=== PATIENT | male | born 1990 | race Caucasian/White ===

== ENCOUNTER 2016-12-18 22:21 | Emergency (ER) | payer OTHER ==
[~2016-12-18 22:21] MED LIST: BACT800T5 PO; CEPH500C3 PO; IBUP800T23 PO; LEXA10TA PO
[2016-12-18 22:23] VITALS: BP 133/66; PULSE 93; RESP 14; TEMP 98; O2SAT 99
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
--- NOTE | 2016-12-18 22:48 | PD ---
HPI Chief Complaint: Wound/Suture/Staple Re-Check Time Seen by Provider: 22:46 Travel History International Travel<30 days: No Contact w/Intl Traveler<30days: No Traveled to known affect area: No History of Present Illness HPI 26-year-old male presents to the emergency department requesting removal of his cast. Patient states it has been in place for 6 weeks. Patient alleges that Dr. Mckeon originally saw him for his wrist injury and placed the cast. He states that the office recently realized that they do not accept his insurance so they told him that they would not see him anymore. They told him they would not remove the cast. Patient denies any new injury. No pain. States that he does not know what to do. He has no other symptoms to report. PFSH Past Medical History Depression: Yes Diabetes: No Diminished Hearing: No Hepatitis: No Immune Disorder: No Psychiatric: Yes (PSA) Integumentary: Yes (SELF INFLICTED LACERATION TO LEFT WRIST, REQUIRING SUTURES) Social History Alcohol Use: Yes (DAILY) Tobacco Use: Yes (1/2 PPD) Substance Use: Yes (REPORTS CRACK AND ALCOHOL) Allergies-Medications (Allergen,Severity, Reaction): Coded Allergies: Aspirin (Verified Allergy, Severe, HEADACHE /ITCHING, 12/18/16) Pt states he does not have this allergy. 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/2015 Reported Meds & Prescriptions Reported Meds & Active Scripts Active Ibuprofen 800 Mg Tab 800 Mg PO Q8HR PRN Keflex (Cephalexin Monohydrate) 500 Mg Cap 500 Mg PO QID 5 Days Bactrim DS (Sulfamethoxazole-Trimethoprim DS) 1 Tab Tab 1 Tab PO BID 10 Days Ibuprofen 800 Mg Tab 800 Mg PO TID PRN 7 Days Keflex (Cephalexin Monohydrate) 500 Mg Cap 500 Mg PO QID 10 Days Bactrim DS (Sulfamethoxazole-Trimethoprim DS) 1 Tab Tab 1 Tab PO BID 10 Days Reported Lexapro (Escitalopram Oxalate) 10 Mg Tab 10 Mg PO DAILY Review of Systems Except as stated in HPI: all other systems reviewed are Neg Physical Exam Narrative GENERAL: Well-nourished, well-developed male patient, ambulatory no acute distress SKIN: Focused skin assessment warm/dry. HEAD: Normocephalic. EYES: No scleral icterus. No injection or drainage. NECK: Supple, trachea midline. No JVD or lymphadenopathy. CARDIOVASCULAR: Regular rate and rhythm without murmurs, gallops, or rubs. RESPIRATORY: Breath sounds equal bilaterally. No accessory muscle use. MUSCULOSKELETAL: No cyanosis, or edema. Cast right upper extremity. Cap refill within normal limits. Sensation intact distal affected digits. BACK: Nontender without obvious deformity. No CVA tenderness. Data Data Last Documented VS Vital Signs Date Time Temp Pulse Resp B/P Pulse Ox O2 Delivery O2 Flow Rate FiO2 12/18/16 22:23 98.0 93 14 133/66 99 Room Air Orders Mandatory Outpatient Referral (12/18/16 22:48) [facility] Medical Decision Making Medical Screen Exam Complete: Yes Emergency Medical Condition: Yes Medical Record Reviewed: Yes Differential Diagnosis Healing fracture versus normal examination versus malunion of fracture versus delayed healing Narrative Course 26-year-old male presents to emergency department requesting that his cast be removed from his right wrist. Explained to the patient that I'm not endocrinology specialist to evaluate or removed. Emergency department. Mandatory referral has been placed for patient to follow-up with endocrinology specialist outpatient. Patient agrees to return immediately if any acute worsening of symptoms. Diagnosis Primary Impression: Wrist fracture, right Qualified Code: S62.101D - Wrist fracture, right, with routine healing, subsequent encounter Referrals: Wyatt Mckeon MD Patient Instructions: General Instructions, Wrist Fracture in Adults (GEN) Additional Instructions: A mandatory referral has been placed If you do not hear from our hospital within a week, please call [phone] and explained to them your situation and tell them that a mandatory referral had been placed Return immediately with any acute worsening of symptoms Med/Other Pt SpecificInfo: No Change to Meds Disposition: 01 DISCHARGE HOME Condition: Stable PippaMarietta NAIK December 18, 2016 22:47
== END 2016-12-18 23:23 | disposition home or self-care (01) ==
LOC: NEPK 22:21
DX: S62.101D Fracture of unspecified carpal bone, right wrist, subsequent encounter for fracture with routine healing (principal); X58.XXXD Exposure to other specified factors, subsequent encounter
CPT/HCPCS: 99283

== ENCOUNTER 2017-01-03 00:42 | Emergency (ER) | payer SELFPAY ==
[~2017-01-03] VITALS: Ht 188 cm; Wt 80.0 kg
[2017-01-03 00:49] VITALS: BP 156/92; PULSE 98; RESP 16; TEMP 98.4; O2SAT 99
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
[2017-01-03 01:10] LABS: AUTOMATED NEUTROPHIL # 5.9 TH/MM3 (1.8-7.7); BASOPHIL # 0.1 TH/MM3 (0-0.2); BASOPHIL % 1.9 % (0.0-2.0); EOSINOPHIL # 0.1 TH/MM3 (0-0.4); EOSINOPHIL % 0.9 % (0.0-4.0); HEMATOCRIT 45.3 % (39.0-51.0); LYMPH % 17.1 % (9.0-44.0); LYMPHOCYTE # 1.4 TH/MM3 (1.0-4.8); MEAN CORPUSCULAR HEMOGLOBIN 31.3 PG (27.0-34.0); MONO % 5.7 % (0.0-8.0); NEUT % 74.4 % (16.0-70.0); PLATELET COUNT 214 TH/MM3 (150-450); RED BLOOD COUNT 5.21 MIL/MM3 (4.50-5.90); RED CELL DISTRIBUTION WIDTH 14.1 % (11.6-17.2)
[2017-01-03 01:11] LABS: HEMO FLAGS AUTO DIFF
[2017-01-03 01:18] LABS: ALT (GPT) 30 U/L (12-78); ANION GAP 15 MEQ/L (5-15); AST (GOT) 24 U/L (15-37); BICARBONATE 24.4 MEQ/L (21.0-32.0); BLOOD UREA NITROGEN 4 MG/DL (7-18); CHLORIDE 103 MEQ/L (98-107); GLOMERULAR FILTRATION RATE 72 ML/MIN (>89); POTASSIUM 3.7 MEQ/L (3.5-5.1); SODIUM (NA) 142 MEQ/L (136-145)
[2017-01-03 01:19] LABS: AMPHETAMINE, URINE NEG (NEG); BARBITURATES, URINE NEG (NEG); COCAINE, URINE POS (NEG)
[2017-01-03 01:20] LABS: ALKALINE PHOSPHATASE 86 U/L (45-117); TOTAL BILIRUBIN ADULT 0.5 MG/DL (0.2-1.0)
[2017-01-03 01:55] LABS: SCAN/DIFF AUTO DIFF CONFIRMED
[2017-01-03 01:56] LABS: PLATELET ESTIMATE SMEAR NORMAL (NORMAL); PLATELET MORPHOLOGY NORMAL (NORMAL)
[2017-01-03 06:16] VITALS: BP 116/66; PULSE 87; RESP 18; O2SAT 97
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
== END 2017-01-03 11:41 | disposition home or self-care (01) ==
LOC: NEPD 00:42 → NEPJ 11:41
DX: F19.10 Other psychoactive substance abuse, uncomplicated (principal); F10.929 Alcohol use, unspecified with intoxication, unspecified; F14.10 Cocaine abuse, uncomplicated; F17.200 Nicotine dependence, unspecified, uncomplicated; Z86.59 Personal history of other mental and behavioral disorders
CPT/HCPCS: 80053; 80307; 85025; 99284

== ENCOUNTER 2017-02-22 06:49 | Emergency (ER) | payer OTHER ==
[~2017-02-22] VITALS: Ht 188 cm; Wt 77.0 kg
[2017-02-22 06:50] VITALS: BP 154/92; PULSE 106; RESP 20; TEMP 98.5; O2SAT 96
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
[2017-02-22 07:36] LABS: AUTOMATED NEUTROPHIL # 6.1 TH/MM3 (1.8-7.7); BASOPHIL # 0.1 TH/MM3 (0-0.2); BASOPHIL % 0.7 % (0.0-2.0); EOSINOPHIL % 0.2 % (0.0-4.0); HEMATOCRIT 45.4 % (39.0-51.0); HEMO FLAGS DIFF FINAL; LYMPH % 39.1 % (9.0-44.0); LYMPHOCYTE # 4.5 TH/MM3 (1.0-4.8); MEAN CELL VOLUME 90.3 FL (80.0-100.0); MEAN CORPUSCULAR HGB CONC 34.3 % (32.0-36.0); MONO % 7.8 % (0.0-8.0); NEUT % 52.2 % (16.0-70.0); PLATELET COUNT 227 TH/MM3 (150-450); RED BLOOD COUNT 5.03 MIL/MM3 (4.50-5.90); RED CELL DISTRIBUTION WIDTH 13.3 % (11.6-17.2); WHITE BLOOD COUNT 11.6 TH/MM3 (4.0-11.0)
[2017-02-22 07:49] LABS: ANION GAP 12 MEQ/L (5-15); AST (GOT) 50 U/L (15-37); BICARBONATE 26.4 MEQ/L (21.0-32.0); BLOOD UREA NITROGEN 9 MG/DL (7-18); CHLORIDE 99 MEQ/L (98-107); GLOMERULAR FILTRATION RATE 96 ML/MIN (>89); POTASSIUM 3.1 MEQ/L (3.5-5.1); SODIUM (NA) 137 MEQ/L (136-145)
[2017-02-22 07:50] LABS: ALT (GPT) 27 U/L (12-78)
[2017-02-22 07:52] LABS: ALKALINE PHOSPHATASE 67 U/L (45-117); TOTAL BILIRUBIN ADULT 0.6 MG/DL (0.2-1.0)
[2017-02-22] MEDS ORDERED: IOHEXOL 350 MG/ML 10 ML VIAL (for RAD DIAG) IV ONE (09:00)
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
[2017-02-22] MEDS ORDERED: POTASSIUM CHLORIDE 25 MEQ EFFERVESCENT TAB PO ONE (09:45)
[2017-02-22 10:40] VITALS: BP 132/85; PULSE 92; RESP 20; O2SAT 98
== END 2017-02-22 11:06 | disposition home or self-care (01) ==
LOC: NEPC 06:49
DX: S09.90XA Unspecified injury of head, initial encounter (principal); S29.9XXA Unspecified injury of thorax, initial encounter; S39.91XA Unspecified injury of abdomen, initial encounter; S16.1XXA Strain of muscle, fascia and tendon at neck level, initial encounter; F10.129 Alcohol abuse with intoxication, unspecified; Y90.8 Blood alcohol level of 240 mg/100 ml or more; V03.90XA Pedestrian on foot injured in collision with car, pick-up truck or van, unspecified whether traffic or nontraffic accident, initial encounter; Y93.01 Activity, walking, marching and hiking; Y92.410 Unspecified street and highway as the place of occurrence of the external cause
CPT/HCPCS: 70450; 71260; 72125; 74177; 80053; 80307; 85025; 99284; L0150; Q9967

== ENCOUNTER 2017-04-07 14:25 | Emergency (ER) | payer OTHER ==
[~2017-04-07] VITALS: Ht 188 cm; Wt 76.0 kg
[2017-04-07 14:38] VITALS: BP 117/62; PULSE 75; RESP 16; TEMP 97.7; O2SAT 99
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
[2017-04-07 16:33] LABS: AUTOMATED NEUTROPHIL # 3.7 TH/MM3 (1.8-7.7); BASOPHIL # 0.1 TH/MM3 (0-0.2); CHLORIDE 103 MEQ/L (98-107); EOSINOPHIL # 0.2 TH/MM3 (0-0.4); EOSINOPHIL % 2.5 % (0.0-4.0); HEMATOCRIT 43.6 % (39.0-51.0); HEMO FLAGS DIFF FINAL; LYMPH % 28.6 % (9.0-44.0); LYMPHOCYTE # 1.8 TH/MM3 (1.0-4.8); MEAN CELL VOLUME 90.9 FL (80.0-100.0); MEAN CORPUSCULAR HEMOGLOBIN 30.5 PG (27.0-34.0); MEAN CORPUSCULAR HGB CONC 33.6 % (32.0-36.0); MONO % 5.9 % (0.0-8.0); PLATELET COUNT 135 TH/MM3 (150-450); RED BLOOD COUNT 4.79 MIL/MM3 (4.50-5.90); RED CELL DISTRIBUTION WIDTH 12.6 % (11.6-17.2); SODIUM (NA) 138 MEQ/L (136-145); WHITE BLOOD COUNT 6.2 TH/MM3 (4.0-11.0)
[2017-04-07 16:36] LABS: ANION GAP 6 MEQ/L (5-15); BICARBONATE 28.6 MEQ/L (21.0-32.0); BLOOD UREA NITROGEN 10 MG/DL (7-18)
[2017-04-07 16:39] LABS: ALT (GPT) 16 U/L (12-78); AST (GOT) 15 U/L (15-37); GLOMERULAR FILTRATION RATE 111 ML/MIN (>89)
[2017-04-07 16:41] LABS: TOTAL BILIRUBIN ADULT 0.5 MG/DL (0.2-1.0)
[2017-04-07 16:42] LABS: ALKALINE PHOSPHATASE 41 U/L (45-117)
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
[2017-04-07 17:18] VITALS: BP 112/64; PULSE 60; RESP 16; O2SAT 100
[2017-04-07] MEDS ORDERED: IBUP-232 PO (18:06)
[2017-04-07] MEDS ORDERED: CEPH-460 PO (18:06)
--- NOTE | 2017-04-08 17:45 | EKG ---
Date Performed: 04/07/2017 Time Performed: 16:09:02 PTAGE: 26 years EKG: SINUS BRADYCARDIA WITH SINUS ARRHYTHMIA BORDERLINE ECG Compared to prior tracing no signifi cant change PREVIOUS TRACING : 04/10/2013 22.53 DOCTOR: Zeke Weiss Interpretating Date/Time 04/08/2017 17:45:22
== END 2017-04-07 18:12 | disposition home or self-care (01) ==
LOC: PHED 14:25
DX: I80.9 Phlebitis and thrombophlebitis of unspecified site (principal); F17.210 Nicotine dependence, cigarettes, uncomplicated
CPT/HCPCS: 71010; 80053; 84484; 85025; 93005; 93971; 99285

== ENCOUNTER 2017-05-18 12:33 | Emergency (ER) | payer OTHER ==
[~2017-05-18] VITALS: Ht 188 cm; Wt 73.3 kg
[~2017-05-18 12:33] MED LIST changes: -BACT800T5 PO; +CEPH-460 PO; -CEPH500C3 PO; +IBUP-232 PO; -IBUP800T23 PO; -LEXA10TA PO
[2017-05-18 12:45] VITALS: BP 128/80; PULSE 56; RESP 16; TEMP 98; O2SAT 98
[2017-05-18] MEDS ORDERED: SODIUM CHLOR 0.9% 1000 ML INJ 1,000 ML IV SCH (12:55)
[2017-05-18] MEDS ORDERED: DICYCLOMINE HCL 10 MG CAP PO ONE (13:00)
[2017-05-18] MEDS ORDERED: FAMOTIDINE 20 MG/2 ML VIAL IV PUSH ONE (13:00)
[2017-05-18] MEDS ORDERED: SODIUM CHLORIDE 0.9% FLUSH 10 ML FLUSH IV FLUSH PRN (13:00)
[2017-05-18] MEDS ORDERED: ONDANSETRON HCL 4 MG/2 ML VIAL IVP ONE (13:00)
--- NOTE | 2017-05-18 13:14 | PD ---
HPI Chief Complaint: GI Complaint Time Seen by Provider: 13:02 Travel History International Travel<30 days: No Contact w/Intl Traveler<30days: No Traveled to known affect area: No History of Present Illness HPI Patient is 26-year-old male who presents to emergency room complaints of nausea , vomiting and abdominal cramping for the past 3 days. Patient reports that symptoms began shortly after he drank "alot of moonshine." Reports "I normally drink beer but 3 days ago I had moonshine from the store." Reports that he has not been able to tolerate anything by mouth for the past 3 days. Reports diffuse mild abdominal cramping. Denies fevers, reports chills. Reports no sick contacts or recent travels. Patient has not taken any antibiotics recently. PFSH Past Medical History Depression: Yes Diabetes: No Diminished Hearing: No Hepatitis: No Immune Disorder: No Musculoskeletal: Yes (Hand FX) Psychiatric: Yes (PSA) Integumentary: Yes (SELF INFLICTED LACERATION TO LEFT WRIST, REQUIRING SUTURES) Immunizations Current: Yes Tetanus Vaccination: < 5 Years Influenza Vaccination: Yes Past Surgical History Surgical History: No Previous Surgery Social History Alcohol Use: Yes (DAILY) Tobacco Use: Yes (1 PPD) Substance Use: No (DENIES) Allergies-Medications (Allergen,Severity, Reaction): Coded Allergies: aspirin (Unverified Allergy, Severe, FIELD, itching, 05/18/17) Patient denies. *MDRO Multi-Drug Resistant Organism (Verified Adverse Reaction, Unknown, 05/18/17) MRSA ABDOMINAL WOUND 06/2015 Reported Meds & Prescriptions Reported Meds & Active Scripts Active Zofran (Ondansetron HCl) 4 Mg Tab 4 Mg PO Q6HR PRN Bentyl (Dicyclomine HCl) 10 Mg Cap 10 Mg PO TID PRN Review of Systems General / Constitutional: No: Fever, Chills Eyes: No: Visual changes HENT: No: Headaches Cardiovascular: No: Chest Pain or Discomfort Respiratory: No: Shortness of Breath Gastrointestinal: Positive: Nausea, Vomiting, Diarrhea, Abdominal Pain, No: Constipation Genitourinary: No: Dysuria Musculoskeletal: No: Pain Skin: No Rash Neurologic: No: Weakness Psychiatric: No: Depression Endocrine: No: Polydipsia Hematologic/Lymphatic: No: Easy Bruising Physical Exam Narrative GENERAL: Mild distress SKIN: Focused skin assessment warm/dry. HEAD: Atraumatic. Normocephalic. EYES: No injection or drainage. ENT: No nasal bleeding or discharge. Mucous membranes pink and moist. NECK: Trachea midline. No JVD. CARDIOVASCULAR: Regular rate and rhythm. No murmur appreciated. RESPIRATORY: No accessory muscle use. Clear to auscultation. Breath sounds equal bilaterally. GASTROINTESTINAL: Abdomen soft, non-tender, nondistended. Hepatic and splenic margins not palpable. MUSCULOSKELETAL: No obvious deformities. No clubbing. No cyanosis. No edema. NEUROLOGICAL: Awake and alert. No obvious cranial nerve deficits. Motor grossly within normal limits. Normal speech. PSYCHIATRIC: Appropriate mood and affect; insight and judgment normal. Data Data Last Documented VS Vital Signs Date Time Temp Pulse Resp B/P (MAP) Pulse Ox O2 Delivery O2 Flow Rate FiO2 05/18/17 14:02 48 18 127/66 (86) 100 Room Air 05/18/17 12:45 98.0 Orders Orders Complete Blood Count With Diff (05/18/17 12:55) Comprehensive Metabolic Panel (05/18/17 12:55) Lipase (05/18/17 12:55) Urinalysis - C+S If Indicated (05/18/17 12:55) Iv Access Insert/Monitor (05/18/17 12:55) Ecg Monitoring (05/18/17 12:55) Ondansetron Inj (Zofran Inj) (05/18/17 13:00) Sodium Chlor 0.9% 1000 Ml Inj (Ns 1000 M (05/18/17 12:55) Sodium Chloride 0.9% Flush (Ns Flush) (05/18/17 13:00) Famotidine Inj (Pepcid Inj) (05/18/17 13:00) Dicyclomine (Bentyl) (05/18/17 13:00) Sodium Chlor 0.9% 1000 Ml Inj (Ns 1000 M (05/18/17 13:15) Urine Culture (05/18/17 13:10) Labs Laboratory Tests Test 05/18/17 13:10 White Blood Count 6.2 TH/MM3 Red Blood Count 5.05 MIL/MM3 Hemoglobin 15.5 GM/DL Hematocrit 45.5 % Mean Corpuscular Volume 90.2 FL Mean Corpuscular Hemoglobin 30.8 PG Mean Corpuscular Hemoglobin Concent 34.2 % Red Cell Distribution Width 12.5 % Platelet Count 198 TH/MM3 Mean Platelet Volume 8.1 FL Neutrophils (%) (Auto) 68.8 % Lymphocytes (%) (Auto) 21.9 % Monocytes (%) (Auto) 6.2 % Eosinophils (%) (Auto) 2.7 % Basophils (%) (Auto) 0.4 % Neutrophils # (Auto) 4.2 TH/MM3 Lymphocytes # (Auto) 1.4 TH/MM3 Monocytes # (Auto) 0.4 TH/MM3 Eosinophils # (Auto) 0.2 TH/MM3 Basophils # (Auto) 0.0 TH/MM3 CBC Comment DIFF FINAL Differential Comment Urine Color IVA Urine Turbidity CLEAR Urine pH 6.5 Urine Specific [place] 1.034 Urine Protein TRACE mg/dL Urine Glucose (UA) NEG mg/dL Urine Ketones 15 mg/dL Urine Occult Blood NEG Urine Nitrite POS Urine Bilirubin NEG Urine Leukocyte Esterase NEG Urine RBC 0-3 /hpf Urine WBC 0-2 /hpf Urine Squamous Epithelial Cells 0-5 /hpf Urine Mucus MOD /lpf Microscopic Urinalysis Comment CULTURE INDICATED Blood Urea Nitrogen 10 MG/DL Creatinine 1.10 MG/DL Random Glucose 136 MG/DL Total Protein 8.2 GM/DL Albumin 4.2 GM/DL Calcium Level 9.1 MG/DL Alkaline Phosphatase 56 U/L Aspartate Amino Transf (AST/SGOT) 16 U/L Alanine Aminotransferase (ALT/SGPT) 18 U/L Total Bilirubin 1.4 MG/DL Sodium Level 137 MEQ/L Potassium Level 3.8 MEQ/L Chloride Level 101 MEQ/L Carbon Dioxide Level 28.2 MEQ/L Anion Gap 8 MEQ/L Estimat Glomerular Filtration Rate 80 ML/MIN Lipase 83 U/L [facility] Medical Decision Making Medical Screen Exam Complete: Yes Emergency Medical Condition: Yes Medical Record Reviewed: Yes Interpretation(s) Vital Signs Date Time Temp Pulse Resp B/P (MAP) Pulse Ox O2 Delivery O2 Flow Rate FiO2 05/18/17 12:45 98.0 56 16 128/80 (96) 98 Differential Diagnosis Differential includes gastritis, gastroenteritis, appendicitis, cholecystitis, pancreatitis, dehydration, electrolyte abnormality Narrative Course 26 year old male who presents to ER with c/o of n/v/d and abdominal cramping for the past 3 days. Symptoms began after he drank moonshine 3 days ago. IV was established upon presentation to the ER. CBC, CMP, UA ordered. IVF and antiemetics as well as Bentyl ordered. Plan to monitor patient and perform serial abdominal exams. Laboratory Tests Test 05/18/17 13:10 White Blood Count 6.2 TH/MM3 (4.0-11.0) Red Blood Count 5.05 MIL/MM3 (4.50-5.90) Hemoglobin 15.5 GM/DL (13.0-17.0) Hematocrit 45.5 % (39.0-51.0) Mean Corpuscular Volume 90.2 FL (80.0-100.0) Mean Corpuscular Hemoglobin 30.8 PG (27.0-34.0) Mean Corpuscular Hemoglobin Concent 34.2 % (32.0-36.0) Red Cell Distribution Width 12.5 % (11.6-17.2) Platelet Count 198 TH/MM3 (150-450) Mean Platelet Volume 8.1 FL (7.0-11.0) Neutrophils (%) (Auto) 68.8 % (16.0-70.0) Lymphocytes (%) (Auto) 21.9 % (9.0-44.0) Monocytes (%) (Auto) 6.2 % (0.0-8.0) Eosinophils (%) (Auto) 2.7 % (0.0-4.0) Basophils (%) (Auto) 0.4 % (0.0-2.0) Neutrophils # (Auto) 4.2 TH/MM3 (1.8-7.7) Lymphocytes # (Auto) 1.4 TH/MM3 (1.0-4.8) Monocytes # (Auto) 0.4 TH/MM3 (0-0.9) Eosinophils # (Auto) 0.2 TH/MM3 (0-0.4) Basophils # (Auto) 0.0 TH/MM3 (0-0.2) CBC Comment DIFF FINAL Differential Comment Urine Color IVA (YELLW/STRAW) Urine Turbidity CLEAR (CLEAR) Urine pH 6.5 (5.0-8.5) Urine Specific [place] 1.034 (1.002-1.035) Urine Protein TRACE mg/dL (NEG-TRACE) Urine Glucose (UA) NEG mg/dL (NEG) Urine Ketones 15 mg/dL (NEG) Urine Occult Blood NEG (NEG) Urine Nitrite POS (NEG) Urine Bilirubin NEG (NEG) Urine Leukocyte Esterase NEG (NEG) Urine RBC 0-3 /hpf (0-3) Urine WBC 0-2 /hpf (0-5) Urine Squamous Epithelial Cells 0-5 /hpf (0-5) Urine Mucus MOD /lpf (OCC) Microscopic Urinalysis Comment CULTURE INDICATED Blood Urea Nitrogen 10 MG/DL (7-18) Creatinine 1.10 MG/DL (0.60-1.30) Random Glucose 136 MG/DL (74-106) Total Protein 8.2 GM/DL (6.4-8.2) Albumin 4.2 GM/DL (3.4-5.0) Calcium Level 9.1 MG/DL (8.5-10.1) Alkaline Phosphatase 56 U/L (45-117) Aspartate Amino Transf (AST/SGOT) 16 U/L (15-37) Alanine Aminotransferase (ALT/SGPT) 18 U/L (12-78) Total Bilirubin 1.4 MG/DL (0.2-1.0) Sodium Level 137 MEQ/L (136-145) Potassium Level 3.8 MEQ/L (3.5-5.1) Chloride Level 101 MEQ/L (98-107) Carbon Dioxide Level 28.2 MEQ/L (21.0-32.0) Anion Gap 8 MEQ/L (5-15) Estimat Glomerular Filtration Rate 80 ML/MIN (>89) Lipase 83 U/L (73-393) Patient reevaluated, patient feeling much better after IV fluids and antiemetics. Abdomen is soft, nontender, nondistended, no peritoneal signs. Reviewed all labs and all studies with patient in detail, patient with most likely a gastroenteritis. He is not having dysuria, urinary urgency or frequency, will not treat for UTI. Patient re-evaluated, abdomen is soft, nt/nd, no peritoneal signs. Patient feeling much better. I reviewed all labs and studies with patient in detail. Patient tolerated fluids in the ER. Signs and symptoms of when to return to the ER was reviewed with patient. Encouraged hydration with decreased alcohol intake. Diagnosis Primary Impression: Nausea vomiting and diarrhea Additional Impression: Dehydration Patient Instructions: General Instructions Additional Instructions: Please drink plenty of fluids Return to ER if symptoms worsen or persist Return to the ER as needed Please follow up with your primary care doctor Med/Other Pt SpecificInfo: Prescription(s) given Scripts Ondansetron (Zofran) 4 Mg Tab 4 MG PO Q6HR Y for NAUSEA OR VOMITING, #20 TAB 0 Refills Prov: Dominique Hawkins DO 05/18/17 Dicyclomine (Bentyl) 10 Mg Cap 10 MG PO TID Y for Bowel Management, #21 CAP 0 Refills Prov: Dominique Hawkins DO 05/18/17 Disposition: 01 DISCHARGE HOME Condition: Stable Dominique Hawkins DO May 18, 2017 13:14
[2017-05-18] MEDS ORDERED: SODIUM CHLOR 0.9% 1000 ML INJ 1,000 ML IV ONE (13:15)
[2017-05-18 13:24] LABS: AUTOMATED NEUTROPHIL # 4.2 TH/MM3 (1.8-7.7); BASOPHIL % 0.4 % (0.0-2.0); BLOOD, URINE NEG (NEG); EOSINOPHIL # 0.2 TH/MM3 (0-0.4); EOSINOPHIL % 2.7 % (0.0-4.0); GLUCOSE,URINE NEG (NEG); HEMATOCRIT 45.5 % (39.0-51.0); HEMO FLAGS DIFF FINAL; KETONE, URINE 15 mg/dL (NEG); LYMPH % 21.9 % (9.0-44.0); LYMPHOCYTE # 1.4 TH/MM3 (1.0-4.8); MEAN CELL VOLUME 90.2 FL (80.0-100.0); MEAN CORPUSCULAR HEMOGLOBIN 30.8 PG (27.0-34.0); MEAN CORPUSCULAR HGB CONC 34.2 % (32.0-36.0); MONO % 6.2 % (0.0-8.0); NEUT % 68.8 % (16.0-70.0); NITRITE,URINE POS (NEG); PH, URINE 6.5 (5.0-8.5); PLATELET COUNT 198 TH/MM3 (150-450); RED BLOOD COUNT 5.05 MIL/MM3 (4.50-5.90); RED CELL DISTRIBUTION WIDTH 12.5 % (11.6-17.2); WHITE BLOOD COUNT 6.2 TH/MM3 (4.0-11.0)
[2017-05-18 13:28] LABS: CHLORIDE 101 MEQ/L (98-107); POTASSIUM 3.8 MEQ/L (3.5-5.1); SODIUM (NA) 137 MEQ/L (136-145)
[2017-05-18 13:32] LABS: ANION GAP 8 MEQ/L (5-15); BICARBONATE 28.2 MEQ/L (21.0-32.0); BLOOD UREA NITROGEN 10 MG/DL (7-18)
[2017-05-18 13:34] LABS: URINE COLOR AMBER (YELLW/STRAW)
[2017-05-18 13:35] LABS: ALT (GPT) 18 U/L (12-78); AST (GOT) 16 U/L (15-37); COMMENT (UR) CULTURE INDICATED; CULTURE IF INDICATED CULTURE INDICATED; GLOMERULAR FILTRATION RATE 80 ML/MIN (>89); MUCUS URINE MOD /lpf (OCC); RBC, URINE 0-3 /hpf (0-3); SQUAMOUS EPITHELIAL CELL URINE 0-5 /hpf (0-5); WBC, URINE 0-2 /hpf (0-5)
[2017-05-18 13:37] LABS: TOTAL BILIRUBIN ADULT 1.4 MG/DL (0.2-1.0)
[2017-05-18 13:38] LABS: ALKALINE PHOSPHATASE 56 U/L (45-117)
[2017-05-18] MEDS ORDERED: DICY10 PO (13:56)
[2017-05-18] MEDS ORDERED: ZOFR4TAB PO (13:56)
[2017-05-18 14:02] VITALS: BP 127/66; PULSE 48; RESP 18; O2SAT 100
[2017-05-18 14:53] VITALS: BP 118/76; PULSE 48; RESP 18; O2SAT 99
== END 2017-05-18 16:11 | disposition home or self-care (01) ==
LOC: PHED 12:33
DX: R11.2 Nausea with vomiting, unspecified (principal); R19.7 Diarrhea, unspecified; E86.0 Dehydration; F32.9 Major depressive disorder, single episode, unspecified; F17.200 Nicotine dependence, unspecified, uncomplicated
CPT/HCPCS: 80053; 81001; 83690; 85025; 87086; 96361; 96374; 96375; 99284; J2405; J7030

== ENCOUNTER 2017-06-22 14:56 | Emergency (ER) | payer OTHER ==
[~2017-06-22 14:56] MED LIST changes: -CEPH-460 PO; +DICY10 PO; -IBUP-232 PO; +ZOFR4TAB PO
[2017-06-22 15:01] VITALS: BP 118/67; PULSE 84; RESP 14; TEMP 98.1; O2SAT 98
--- NOTE | 2017-06-22 15:32 | PD ---
HPI Chief Complaint: Medical Clearance Time Seen by Provider: 15:32 Travel History International Travel<30 days: No Contact w/Intl Traveler<30days: No Traveled to known affect area: No History of Present Illness HPI 26-year-old resents the [employer] requesting RHINOVIRUS TESTING; FAMILY MEMBER HAS THIS. REPORTING BILAT EAR PAIN X 3 DAYS; moderate in severity. Does not radiate anywhere. NO FEVER OR CHILLS NO OTHER SYMPTOMS History Past Medical Histgory Medical History: Denies Significant Hx Social History Alcohol Use: Yes (DAILY) Tobacco Use: Yes (1 PPD) Allergies-Medications (Allergen,Severity, Reaction): Coded Allergies: aspirin (Unverified Allergy, Severe, FIELD, itching, 05/18/17) Patient denies. 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 HEAD: Atraumatic. Normocephalic. No mastoid tenderness EARS: Bilateral pinnae and external canals appear within normal limits. Bilateral tympanic membranes without erythema, dullness or perforation. EYES: Pupils equal and round. No scleral icterus. No injection or drainage. ENT: No nasal bleeding or discharge. Mucous membranes pink and moist. NECK: Trachea midline. CARDIOVASCULAR: Regular rate RESPIRATORY: No accessory muscle use. GASTROINTESTINAL: Abdomen nondistended. MUSCULOSKELETAL: Extremities without clubbing, cyanosis, or edema. No obvious deformities. NEUROLOGICAL: Awake and alert. No obvious cranial nerve deficits. Normal speech Data Data Last Documented VS Vital Signs Date Time Temp Pulse Resp B/P (MAP) Pulse Ox O2 Delivery O2 Flow Rate FiO2 06/22/17 15:01 98.1 84 14 118/67 (84) 98 MDM Medical Screen Exam Complete: Yes Emergency Medical Condition: No Differential Diagnosis Normal exam Narrative Course A medical screening exam was performed: At the time of evaluation the presenting medical condition was determined not to be of an emergent nature. The patient was given the option of receiving additional care, but declined. Patient was given options for additional community resources from which to obtain care. The Patient Has Been advised to seek medical attention for their presenting complaint. The patient has been advised to return to the ER at any time if an emergent condition develops. Primary Impression: Encounter for medical screening examination Condition: Stable Marietta Das Jun 22, 2017 15:32
== END 2017-06-22 15:40 | disposition left against medical advice (07) ==
LOC: NED 14:56
DX: H92.03 Otalgia, bilateral (principal); F17.200 Nicotine dependence, unspecified, uncomplicated; Z79.899 Other long term (current) drug therapy; Z88.6 Allergy status to analgesic agent
CPT/HCPCS: 99281

== ENCOUNTER 2017-08-03 15:32 | Emergency (ER) | payer OTHER ==
[2017-08-03 15:33] VITALS: BP 124/76; PULSE 88; RESP 16; TEMP 98.2; O2SAT 98
[2017-08-03] MEDS ORDERED: VENTAER INH (18:48)
[2017-08-03] MEDS ORDERED: ZITHTAB PO (18:48)
== END 2017-08-03 15:37 | disposition left against medical advice (07) ==
LOC: NED 15:32
DX: J98.9 Respiratory disorder, unspecified (principal)
CPT/HCPCS: 99281

== ENCOUNTER 2017-08-03 18:25 | Emergency (ER) | payer OTHER ==
[2017-08-03 18:25] VITALS: BP 127/75; PULSE 96; RESP 16; TEMP 98.2; O2SAT 98
[2017-08-03] MEDS ORDERED: VENTAER INH (18:48)
[2017-08-03] MEDS ORDERED: ZITHTAB PO (18:48)
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
== END 2017-08-03 19:02 | disposition home or self-care (01) ==
LOC: NEPK 18:25
DX: J40 Bronchitis, not specified as acute or chronic (principal); F17.200 Nicotine dependence, unspecified, uncomplicated
CPT/HCPCS: 99283

== ENCOUNTER 2017-09-05 06:12 | Emergency (ER) | payer OTHER ==
[~2017-09-05] VITALS: Ht 175.3 cm; Wt 77.0 kg
[~2017-09-05 06:12] MED LIST changes: +VENTAER INH; +ZITHTAB PO
[2017-09-05 06:13] VITALS: BP 117/71; PULSE 80; RESP 16; TEMP 98.1; O2SAT 98
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
[2017-09-05] MEDS ORDERED: TETANUS/DIPHTHERIA TOXOID ADULT 0.5 ML VIAL IM ONE (06:45)
[2017-09-05] MEDS ORDERED: SODIUM CHLORIDE 0.9% FLUSH 10 ML FLUSH IVF PRN (06:45)
[2017-09-05] MEDS ORDERED: ceFAZolin 2 GM PREMIX 50 ML IV ONE (06:45)
[2017-09-05 06:49] VITALS: PULSE 76; RESP 14; O2SAT 100
[2017-09-05 06:59] LABS: AUTOMATED NEUTROPHIL # 3.1 TH/MM3 (1.8-7.7); BASOPHIL % 0.8 % (0.0-2.0); EOSINOPHIL % 0.6 % (0.0-4.0); HEMATOCRIT 40.6 % (39.0-51.0); LYMPH % 40.5 % (9.0-44.0); LYMPHOCYTE # 2.4 TH/MM3 (1.0-4.8); MEAN CORPUSCULAR HEMOGLOBIN 31.4 PG (27.0-34.0); MEAN CORPUSCULAR HGB CONC 34.5 % (32.0-36.0); MEAN PLATELET VOLUME 8.4 FL (7.0-11.0); MONO % 5.4 % (0.0-8.0); MONOCYTE # 0.3 TH/MM3 (0-0.9); NEUT % 52.7 % (16.0-70.0); PLATELET COUNT 154 TH/MM3 (150-450); RED BLOOD COUNT 4.47 MIL/MM3 (4.50-5.90); RED CELL DISTRIBUTION WIDTH 13.7 % (11.6-17.2); WHITE BLOOD COUNT 5.8 TH/MM3 (4.0-11.0)
[2017-09-05 07:08] LABS: INTERNATIONAL NORMALIZED RATIO 1.1 RATIO; PROTHROMBIN TIME - PATIENT 11.4 SEC (9.8-11.6)
[2017-09-05] MEDS ORDERED: IOHEXOL 350 MG/ML 10 ML VIAL (for RAD DIAG) IVCONTRAST ONE (07:08)
[2017-09-05] MEDS ORDERED: NICOTINE 14 MG/24 HR PATCH T-DERMAL ONE (07:15)
[2017-09-05 07:25] LABS: BICARBONATE 28.2 MEQ/L (21.0-32.0); CALCIUM 8.5 MG/DL (8.5-10.1); CREATININE 0.75 MG/DL (0.60-1.30)
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
[2017-09-05] MEDS ORDERED: LORazepam 2 MG/ML VIAL IV PUSH ONE (08:45)
[2017-09-05 09:22] VITALS: BP 128/83; PULSE 101; RESP 18; O2SAT 100
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
== END 2017-09-05 18:27 | disposition home or self-care (01) ==
LOC: NEPC 06:12 → NEPJ 18:27
DX: S11.91XA Laceration without foreign body of unspecified part of neck, initial encounter (principal); F17.200 Nicotine dependence, unspecified, uncomplicated; X78.1XXA Intentional self-harm by knife, initial encounter; Z23 Encounter for immunization
CPT/HCPCS: 12001; 70491; 80048; 80307; 85025; 85610; 85730; 86850; 86900; 86901; 90471; 90714; 96365; 96366; 96375; 99285; J0690; J2060; Q9967

== ENCOUNTER 2017-09-16 00:49 | Emergency (ER) | payer OTHER ==
[2017-09-16 00:52] VITALS: BP 118/77; PULSE 56; RESP 16; TEMP 97.6; O2SAT 100
--- NOTE | 2017-09-16 02:03 | PD ---
HPI Chief Complaint: Wound/Suture/Staple Re-Check Time Seen by Provider: 01:53 Travel History International Travel<30 days: No Contact w/Intl Traveler<30days: No Traveled to known affect area: No History of Present Illness HPI Patient is a 26-year-old male presented to the emergency department to have his stitches removed. Patient had stitches placed on 09/05/17. He denies any redness, swelling, drainage. He further denies any fevers or pain. Patient with no other complaints at this time. [facility] Past Medical History Depression: Yes Diabetes: No Diminished Hearing: No Hepatitis: No Immune Disorder: No Musculoskeletal: Yes (Hand FX) Psychiatric: Yes (PSA) Integumentary: Yes (SELF INFLICTED LACERATION TO LEFT WRIST, REQUIRING SUTURES) Immunizations Current: Yes Social History Alcohol Use: Yes (DAILY) Tobacco Use: Yes (1 PPD) Substance Use: No (DENIES) Allergies-Medications (Allergen,Severity, Reaction): Coded Allergies: aspirin (Unverified Allergy, Severe, FIELD, itching, 09/16/17) Patient denies. 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/2015 Reported Meds & Prescriptions Reported Meds & Active Scripts Active No Active Prescriptions or Reported Medications Review of Systems Skin: Positive Other Physical Exam Narrative GENERAL: Well-developed, well-nourished, well-kept male. Presenting in no acute distress. SKIN: Warm and dry. 2 well-healed, well approximated sutures noted to the right neck on the lateral aspect. No redness, induration, erythema noted. HEAD: Normocephalic. EYES: No scleral icterus. No injection or drainage. NECK: Supple, trachea midline. No JVD or lymphadenopathy. CARDIOVASCULAR: Regular rate and rhythm without murmurs, gallops, or rubs. RESPIRATORY: Breath sounds equal bilaterally. No accessory muscle use. GASTROINTESTINAL: Abdomen soft, non-tender, nondistended. MUSCULOSKELETAL: No cyanosis, or edema. BACK: Nontender without obvious deformity. No CVA tenderness. Data Data Last Documented VS Vital Signs Date Time Temp Pulse Resp B/P (MAP) Pulse Ox O2 Delivery O2 Flow Rate FiO2 09/16/17 00:52 97.6 56 16 118/77 (91) 100 Orders Orders Ed Discharge Order (09/16/17 01:59) MDM Medical Decision Making Medical Screen Exam Complete: Yes Emergency Medical Condition: Yes Interpretation(s) Vital Signs Date Time Temp Pulse Resp B/P (MAP) Pulse Ox O2 Delivery O2 Flow Rate FiO2 09/16/17 00:52 97.6 56 16 118/77 (91) 100 Differential Diagnosis Cellulitis versus wound dehiscence versus normal healing Narrative Course Patient is well-appearing 26-year-old male presenting to have stitches removed from his neck. Patient tolerated well, to intact stitches were removed without difficulty. There is no open skin noted. Patient was encouraged to return to emergency department for any new or worsening symptoms. Patient stable for discharge. Diagnosis Primary Impression: Visit for suture removal Referrals: Primary Care Physician Patient Instructions: General Instructions Additional Instructions: Follow-up with your primary doctor Return to emergency department for any new or worsening symptoms Med/Other Pt SpecificInfo: No Change to Meds Scripts No Active Prescriptions or Reported Meds Disposition: 01 DISCHARGE HOME Condition: Stable Giovana Miguel Sep 16, 2017 02:03
== END 2017-09-16 02:05 | disposition home or self-care (01) ==
LOC: NEPD 00:49
DX: S11.90XD Unspecified open wound of unspecified part of neck, subsequent encounter (principal); X58.XXXD Exposure to other specified factors, subsequent encounter; Z48.02 Encounter for removal of sutures
CPT/HCPCS: 99281

== ENCOUNTER 2017-11-15 20:57 | Emergency (ER) | payer OTHER ==
[~2017-11-15] VITALS: Ht 188 cm; Wt 79.5 kg
[2017-11-15 21:21] VITALS: BP 133/83; PULSE 86; RESP 18; TEMP 98.4; O2SAT 97
--- NOTE | 2017-11-15 22:01 | RADRPT ---
EXAM DATE/TIME: 11/15/2017 21:30 [facility] COMPARISON: No previous studies available for comparison. INDICATIONS : Right hand pain, punched door MEDICAL HISTORY : Previous right hand injury SURGICAL HISTORY : None. ENCOUNTER: Initial ACUITY: 1 day PAIN SCORE: 8/10 LOCATION: Right Hand FINDINGS: There is a mildly angulated fracture of the proximal shaft of the fifth metacarpal. No dislocation. N o other fractures are seen. CONCLUSIO Mildly angulated fracture of the shaft of the fifth metacarpal. Fabricio Yanes MD on November 15, 2017 at 21:57 Board Certified Radiologist. This report was verified electronically.
[2017-11-16] MEDS ORDERED: TRAM-388 PO (00:42)
--- NOTE | 2017-11-16 00:43 | PD ---
HPI Chief Complaint: Injury Time Seen by Provider: 00:35 Travel History International Travel<30 days: No Contact w/Intl Traveler<30days: No Traveled to known affect area: No History of Present Illness HPI 27-year-old male patient presents to the ER today because he states that he had punched a door last night. He denies any other issues or injury. He is complaining of pain in his right hand. Modifying Factors: None Associated Signs & Symptoms: Right hand injury Risk Factors: None PFSH Past Medical History Depression: Yes Diabetes: No Diminished Hearing: No Hepatitis: No Immune Disorder: No Musculoskeletal: Yes (Hand FX) Psychiatric: Yes (PSA) Integumentary: Yes (SELF INFLICTED LACERATION TO LEFT WRIST, REQUIRING SUTURES) Immunizations Current: Yes Past Surgical History Surgical History: No Previous Surgery Social History Alcohol Use: Yes (DAILY) Tobacco Use: Yes (1 PPD) Substance Use: No (DENIES) Allergies-Medications (Allergen,Severity, Reaction): Coded Allergies: aspirin (Unverified Allergy, Severe, FIELD, itching, 09/16/17) Patient denies. 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/2015 Reported Meds & Prescriptions Reported Meds & Active Scripts Active No Active Prescriptions or Reported Medications Review of Systems Except as stated in HPI: all other systems reviewed are Neg Physical Exam Narrative GENERAL: Well-nourished, well-developed well-developed young male patient in mild distress. Awake and oriented 3. SKIN: Focused skin assessment warm/dry. HEAD: Normocephalic. EYES: No scleral icterus. No injection or drainage. NECK: Supple, trachea midline. No JVD or lymphadenopathy. Right hand: There is notable edema and ecchymosis at the right fifth metacarpal area. Tender to palpation. Neurovascularly intact. Data Data Last Documented VS Vital Signs Date Time Temp Pulse Resp B/P (MAP) Pulse Ox O2 Delivery O2 Flow Rate FiO2 11/15/17 21:21 98.4 86 18 133/83 (100) 97 Orders Orders Hand, Complete (Aov7ied) (11/15/17 ) Splint Or Brace Apply/Monitor (11/16/17 00:35) Acetamin-Hydrocod 325-5 Mg ([place] 5-325 (11/16/17 00:45) Ed Discharge Order (11/16/17 00:38) [facility] Medical Decision Making Medical Screen Exam Complete: Yes Emergency Medical Condition: Yes Medical Record Reviewed: Yes Differential Diagnosis Right hand injury: Contusion versus fracture versus strain Narrative Course X-ray shows a mildly angulated fifth metacarpal fracture. At this point, plan would be to place the patient in a splint, sling, and have him follow with hand. Return for any worsening in pain or new symptoms as needed. The plan has been discussed with the patient andHe states understanding. Med/Other Pt SpecificInfo: Prescription(s) given Scripts Tramadol-Acetaminophen (Tramadol-Acetaminophen) 37.5-325 mg Tab 1 TAB PO Q6H Y for PAIN, #12 TAB 0 Refills Prov: Christin Montes MD 11/16/17 Disposition: 01 DISCHARGE HOME Condition: Stable Christin Montes MD Nov 16, 2017 00:43
[2017-11-16] MEDS ORDERED: ACETAMINOPHEN/HYDROcodone 325 MG/5 MG TAB PO ONE (00:45)
== END 2017-11-16 01:17 | disposition home or self-care (01) ==
LOC: NEPD 20:57
DX: S62.326A Displaced fracture of shaft of fifth metacarpal bone, right hand, initial encounter for closed fracture (principal); W22.09XA Striking against other stationary object, initial encounter
CPT/HCPCS: 29125; 73130

== ENCOUNTER 2017-12-13 12:37 | Emergency (ER) | payer OTHER ==
[~2017-12-13] VITALS: Ht 188 cm; Wt 80.0 kg
[~2017-12-13 12:37] MED LIST changes: -DICY10 PO; +TRAM-388 PO; -VENTAER INH; -ZITHTAB PO; -ZOFR4TAB PO
[2017-12-13 12:53] VITALS: BP 109/56; PULSE 64; RESP 15; TEMP 97.5; O2SAT 97
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
== END 2017-12-13 13:55 | disposition home or self-care (01) ==
LOC: NEPK 12:37
DX: Z02.89 Encounter for other administrative examinations (principal); S62.91XD Unspecified fracture of right hand, subsequent encounter for fracture with routine healing; F17.210 Nicotine dependence, cigarettes, uncomplicated
CPT/HCPCS: 99281